=== PATIENT | female | born 1980 | race Caucasian/White ===

== ENCOUNTER 2019-02-25 09:10 | Day surgery (SDC) | payer OTHER ==
[~2019-02-25 09:10] MED LIST: 0.9 % SODIUM CHLORIDE PF 10 ML VIAL IJ ONE; DEXAMETHASONE SODIUM PHOSPHATE 10 MG/ML VIAL ONE; LACTATED RINGERS 1,000 ML IV.SOLN IV ONE; LIDOCAINE HCL 1% PF 300MG/30ML VIAL ONE; MIDAZOLAM HCL 2 MG/2 ML VIAL ONE; ONDANSETRON HCL/PF 4 MG/ 2ML VIAL ONE; fentaNYL CITRATE/PF 100 MCG/2 ML INJ. ONE
== END 2019-02-25 11:48 | disposition home or self-care (01) ==
LOC: OPSURG 09:10
PROVIDERS: ATTEND Pain Medicine Interventional Pain Medicine
DX: M47.816 Spondylosis without myelopathy or radiculopathy, lumbar region (principal); M54.5 Low back pain
CPT/HCPCS: 64635; 64636; J2001; J2250; J2405; J3010; J7120